=== PATIENT | female | born 1985 ===

== ENCOUNTER 2016-09-25 13:54 | Emergency (ER) | payer MEDICAID ==
[2016-09-25 13:54] VITALS: BMI 24.5
[2016-09-25 14:30] VITALS: RESP 18; O2SAT 98
[2016-09-25] MEDS ORDERED: Dexamethasone 4 mg/1 ml IM STA (14:53)
[2016-09-25] MEDS ORDERED: Dexamethasone 4 mg/1 ml ONE (15:00)
[2016-09-25 15:19] LABS: BASO % 0.3 % (0.0-2.0); EOS # 0.3 K/uL (0.0-0.7); EOS % 1.9 % (0.0-4.0); HEMATOCRIT 37.8 % (34.0-47.0); LYMPH # 1.7 K/uL (1.0-4.3); LYMPH % 12.2 % (20.0-40.0); MEAN CELL VOLUME 87.1 fL (81.0-99.0); MEAN CORPUSCULAR HEMOGLOBIN 28.6 pg (27.0-31.0); MEAN CORPUSCULAR HGB CONC 32.8 g/dL (33.0-37.0); MONO % 7.2 % (0.0-10.0); RED CELL DISTRIBUTION WIDTH 13.7 % (11.5-14.5); WHITE BLOOD COUNT 13.7 K/uL (4.8-10.8)
[2016-09-25 15:30] LABS: RBC URINE 3 /hpf (0-3); URINE BILIRUBIN NEGATIVE (NEGATIVE); URINE BLOOD NEGATIVE (NEGATIVE); URINE COLOR Yellow (YELLOW); URINE GLUCOSE (UA) NORMAL (Normal); URINE KETONE NEGATIVE (NEGATIVE); URINE PROTEIN 2+ mg/dL (NEGATIVE); WBC URINE 8 /hpf (0-5)
[2016-09-25 15:31] LABS: URINE LEUKOCYTE ESTERASE 1+ Leu/uL (Negative)
[2016-09-25 15:32] LABS: CHLORIDE 100 mmol/L (98-107)
[2016-09-25 15:33] LABS: POTASSIUM 3.7 mmol/L (3.6-5.2); SODIUM 138 mmol/L (132-148)
[2016-09-25 15:36] LABS: ALB/GLOB RATIO 1.1 (1.0-2.1); ALKALINE PHOSPHATASE 62 U/L (38-126); AST/SGOT 20 U/L (14-36); BILIRUBIN,TOTAL 0.2 mg/dL (0.2-1.3); BLOOD UREA NITROGEN 7 mg/dL (7-17); CARBON DIOXIDE 27 mmol/L (22-30); GFR AFRICAN-AMERICAN > 60
[2016-09-25 15:37] LABS: ALT/SGPT 23 U/L (9-52); CALCIUM 8.3 mg/dl (8.6-10.4); GLUCOSE,RANDOM 102 mg/dL (65-105)
[2016-09-25] MEDS ORDERED: Amoxicillin-Clav 875-125 mg Tab PO STA (15:50)
--- NOTE | 2016-09-25 15:54 | C.PDOC ---
Time Seen by Provider: 09/25/16 14:42 Chief Complaint (Nursing): Flu-like Symptoms History Per: Patient Onset/Duration Of Symptoms: Days (3) Current Symptoms Are (Timing): Still Present Associated Symptoms: Fever, Sore Throat, Cough, Nasal Congestion Severity: Moderate Additional History Per: Prior Records Past Medical History Reviewed: Historical Data, Nursing Documentation, Vital Signs Vital Signs: Last Vital Signs Temp 97.7 F 09/25/16 14:27 Pulse 90 09/25/16 14:27 Resp 18 09/25/16 14:27 BP 100/68 09/25/16 14:27 Pulse Ox 98 09/25/16 14:27 - Medical History PMH: No Chronic Diseases Surgical History: Cholecystectomy Family History: States: Unknown Family Hx - Social History Hx Tobacco Use: No Hx Alcohol Use: Yes Hx Substance Use: No - Immunization History Hx Tetanus Toxoid Vaccination: No Hx Influenza Vaccination: No Hx Pneumococcal Vaccination: No Review Of Systems Except As Marked, All Systems Reviewed And Found Negative. Constitutional: Positive for: Fever. Negative for: Weakness ENT: Positive for: Nose Congestion, Throat Pain, Throat Swelling Cardiovascular: Negative for: Chest Pain Respiratory: Positive for: Cough. Negative for: Shortness of Breath, Hemoptysis Gastrointestinal: Negative for: Abdominal Pain Genitourinary: Negative for: Dysuria Musculoskeletal: Negative for: Neck Pain, Back Pain Skin: Negative for: Rash Neurological: Negative for: Weakness, Numbness, Seizures, Altered Mental Status Physical Exam - Physical Exam Appears: Non-toxic, No Acute Distress Skin: Normal Color, Warm, Dry, No Rash Head: Atraumatic, Normacephalic Eye(s): bilateral: Normal Inspection, PERRL, EOMI Oral Mucosa: Moist, No Drooling, No Trismus Throat: Erythema, Exudate, No Drooling, No Mass Neck: Normal ROM, Supple Cardiovascular: Rhythm Regular Respiratory: Normal Breath Sounds, No Accessory Muscle Use Gastrointestinal/Abdominal: Soft, No Tenderness, No Organomegaly Back: No CVA Tenderness Extremity: Normal ROM Neurological/Psych: Oriented x3, Normal Speech, Normal Motor, Normal Sensation ED Course And Treatment - Laboratory Results Result Diagrams: 09/25/16 15:13 09/25/16 15:13 Urine POC: Negative O2 Sat by Pulse Oximetry: 98 Pulse Ox Interpretation: Normal Reassessment Condition: Improved Disposition Counseled Patient/Family Regarding: Studies Performed, Diagnosis, Need For Followup, Rx Given - Disposition Disposition: HOME/ ROUTINE Disposition Time: 15:54 Condition: IMPROVED Additional Instructions: Drink plenty of fluids. Follow up with your doctor this week. Return to the ER if you develop trouble breathing or swallowing, worsening of symptoms or if you have any other concerns. Prescriptions: Amoxicillin/Clavulanate [Augmentin 875 MG-125 MG] 1 tab PO BID #14 tab Instructions: Tonsillitis (ED), Cold Symptoms (ED) - Clinical Impression Clinical Impression: Influenza-like illness, Tonsillitis
[2016-09-25] MEDS ORDERED: Amoxicillin-Clav 875-125 mg Tab PO ONE (16:00)
[2016-09-25 16:14] VITALS: BP 104/73; PULSE 92; TEMP 98.6
== END 2016-09-25 16:20 | disposition home or self-care (01) ==
LOC: C.ER 13:54
DX: J03.90 Acute tonsillitis, unspecified (principal)
CPT/HCPCS: 80053; 81001; 84703; 85025; 86308; 96372; 99283; J1100

== ENCOUNTER 2017-04-06 13:29 | Emergency (ER) | payer MEDICAID ==
[2017-04-06 13:29] VITALS: BMI 24.5
--- NOTE | 2017-04-06 14:16 | C.PDOC ---
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 Also complaining of intermittent right arm pain diffusely from shoulder to wrist, which is dull and throbbing. Patient is right hand dominant. States the lesions become pustular and then cavernous. She has been treated before but does not remember the medications. No fever, chills, nausea, vomiting, or other complaints. PMD: Unknown provider Time Seen by Provider: 04/06/17 14:01 Chief Complaint (Nursing): Abnormal Skin Integrity History Per: Patient History/Exam Limitations: no limitations Onset/Duration Of Symptoms: Intermittent Episodes Current Symptoms Are (Timing): Still Present Past Medical History Reviewed: Historical Data, Nursing Documentation, Vital Signs Vital Signs: Last Vital Signs Temp 98.2 F 04/06/17 14:22 Pulse 80 04/06/17 14:22 Resp 17 04/06/17 14:22 BP 100/68 04/06/17 14:22 Pulse Ox 98 04/06/17 14:22 - Medical History PMH: Denies: Chronic Kidney Disease Surgical History: Cholecystectomy Family History: States: Unknown Family Hx - Social History Hx Tobacco Use: No Hx Alcohol Use: Yes Hx Substance Use: No - Immunization History Hx Tetanus Toxoid Vaccination: No Hx Influenza Vaccination: No Hx Pneumococcal Vaccination: No Review Of Systems Except As Marked, All Systems Reviewed And Found Negative. Constitutional: Negative for: Fever, Chills Gastrointestinal: Negative for: Nausea, Vomiting Musculoskeletal: Positive for: Arm Pain (Right) Skin: Positive for: Lesions Physical Exam - Physical Exam Appears: Well, Non-toxic, No Acute Distress Skin: Warm, Dry, Other (1 lesion to her right thigh and 1 to her chest region, which appear similar to small pimples) Head: Atraumatic, Normacephalic Eye(s): bilateral: Normal Inspection, PERRL, EOMI Nose: Normal Neck: Normal, Supple Chest: Symmetrical Cardiovascular: Rhythm Regular, No Murmur Respiratory: Normal Breath Sounds, No Accessory Muscle Use Gastrointestinal/Abdominal: Soft, No Tenderness Back: Normal Inspection, No Vertebral Tenderness Extremity: Normal ROM (with full ROM of right arm), No Other (Edema, redness) Neurological/Psych: Oriented x3, Normal Speech ED Course And Treatment O2 Sat by Pulse Oximetry: 99 (RA) Pulse Ox Interpretation: Normal Progress Note: Given Clindamycin in the ED. Stable for discharge home with rx for Clindamycin. Follow up with primary doctor. Disposition - Disposition Referrals: [facility] [Outside] Disposition: HOME/ ROUTINE Disposition Time: 14:14 Condition: STABLE Additional Instructions: Siga con johnson doctor o la clinica indicada. Okay johnson medicina brigitte es indicada. Regrese a la iban de emergencia si le da fiebre, o cualquier otro problema. Prescriptions: Clindamycin [Cleocin] 1 cap PO QID #30 cap Instructions: Complications of Infection (GEN) Forms: Gen Discharge Inst Paraguayan, [employer] (Paraguayan) - POA Present On Arrival: None - Clinical Impression Clinical Impression: Staph aureus infection - Scribe Statement The provider has reviewed the documentation as recorded by the Scribe Alisa Pacheco All medical record entries made by the Scribe were at my direction and personally dictated by me. I have reviewed the chart and agree that the record accurately reflects my personal performance of the history, physical exam, medical decision making, and the department course for this patient. I have also personally directed, reviewed, and agree with the discharge instructions and disposition.
[2017-04-06 14:23] VITALS: BP 100/68; PULSE 80; RESP 17; TEMP 98.2
[2017-04-06 18:43] VITALS: O2SAT 99
== END 2017-04-06 14:30 | disposition home or self-care (01) ==
LOC: C.ER 13:29
DX: A49.01 Methicillin susceptible Staphylococcus aureus infection, unspecified site (principal)

== ENCOUNTER 2017-05-11 12:57 | Emergency (ER) | payer MEDICAID ==
[2017-05-11 12:57] VITALS: BMI 24.5
[2017-05-11 13:18] VITALS: BP 114/76; PULSE 77; RESP 18; TEMP 97.8; O2SAT 100
--- NOTE | 2017-05-11 13:47 | C.PDOC ---
History Of Present Illness 32 yr old female presents to the ER fro evaluation of bilateral forearm pain, intermittently for the past 2 months. 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 Patient reports currently she is on Naproxen but with no improvement. Denies chest pain, SOB, neck pain, shoulder pain, weakness , numbness, sensory or vascular deficit. Time Seen by Provider: 05/11/17 13:41 Chief Complaint (Nursing): Upper Extremity Problem/Injury History Per: Patient History/Exam Limitations: no limitations Onset/Duration Of Symptoms: Intermittent Episodes (Past 2 months) Past Medical History Reviewed: Historical Data, Nursing Documentation, Vital Signs Vital Signs: Last Vital Signs Temp 97.8 F 05/11/17 13:13 Pulse 77 05/11/17 13:13 Resp 18 05/11/17 13:13 BP 114/76 05/11/17 13:13 Pulse Ox 100 05/11/17 18:30 Surgical History: Cholecystectomy Family History: States: No Known Family Hx - Social History Hx Tobacco Use: No Hx Alcohol Use: Yes Hx Substance Use: No - Immunization History Hx Tetanus Toxoid Vaccination: No Hx Influenza Vaccination: No Hx Pneumococcal Vaccination: No Review Of Systems Except As Marked, All Systems Reviewed And Found Negative. Cardiovascular: Negative for: Chest Pain Respiratory: Negative for: Shortness of Breath Musculoskeletal: Positive for: Other ((+) Bilateral forearm pain). Negative for : Neck Pain, Shoulder Pain Neurological: Negative for: Weakness, Numbness Physical Exam - Physical Exam Appears: Well, Non-toxic, No Acute Distress Skin: Normal Color, Warm, Dry, No Rash Head: Normacephalic Eye(s): bilateral: PERRL Extremity: Normal ROM (Bilateral upper extremities), Tenderness (Diffuse tenderness to bilatera forearms), Capillary Refill (<2 secs.), No Deformity, No Swelling Pulses: Left Radial: Normal, Right Radial: Normal Neurological/Psych: Oriented x3, Normal Speech, Normal Motor, Normal Sensation, Normal Reflexes ED Course And Treatment O2 Sat by Pulse Oximetry: 100 (RA) Pulse Ox Interpretation: Normal Progress Note: On re-eval, pt is afebrile, hemodynamicaly stable. Non-toxic. Ambulatory in ED with stable gait. B/L UEs; Exam c/w elbow tendonitis/forearm muscle strain. FAROM, no neurovascular deficits. No skin changes. Neuorlogicaly intact. Pt advised. re.f to f/u with PMD, Ortho in 2-3 days for re-eavl. return to Ed if any worsening or new changes. Disposition Counseled Patient/Family Regarding: Studies Performed, Diagnosis, Need For Followup, Rx Given - Disposition Referrals: José Bautista MD [Medical Doctor] - Disposition: HOME/ ROUTINE Disposition Time: 13:45 Condition: STABLE Additional Instructions: MARILEE WRAP TO ELBOWS LIGHT DUTY TO B/L ARM TAKE MEDICATION PRESCRIBED FOLLOW UP WITH PMD IN 2-3 DAYS FOR RE-EVALUATION. RETURN TO ED IF ANY WORSENING OR NEW CHANGES. 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 - Scribe Statement The provider has reviewed the documentation as recorded by the Scribe Lora Wilburn All medical record entries made by the Scribe were at my direction and personally dictated by me. I have reviewed the chart and agree that the record accurately reflects my personal performance of the history, physical exam, medical decision making, and the department course for this patient. I have also personally directed, reviewed, and agree with the discharge instructions and disposition.
== END 2017-05-11 13:54 | disposition home or self-care (01) ==
LOC: C.ER 12:57
DX: M79.632 Pain in left forearm (principal); M79.631 Pain in right forearm

== ENCOUNTER 2017-09-19 16:59 | Emergency (ER) | payer MEDICAID ==
[2017-09-19 16:59] VITALS: BMI 24.5
[2017-09-19 17:10] VITALS: BP 110/74; PULSE 75; RESP 18; TEMP 98.1; O2SAT 100
--- NOTE | 2017-09-19 17:37 | C.PDOC ---
History Of Present Illness 32 y/o female presents to the ER complaining of swelling to the face which has been present for the past 1 week. Patient states that she has swelling to the right lower eyelid, right side of nose, and right side of jawline. Patient reports that she went to the clinic and was prescribed Amoxicillin and Erythromycin Ophth without improvement. Patient notes that she has some discharge from the abscess from the eye. Patient denies having visual changes, fever, chills, dental pain, difficulty swallowing, and difficulty breathing. Time Seen by Provider: 09/19/17 17:11 Chief Complaint (Nursing): Abnormal Skin Integrity History Per: Patient History/Exam Limitations: no limitations Onset/Duration Of Symptoms: Days Current Symptoms Are (Timing): Still Present Severity: Moderate Past Medical History Reviewed: Historical Data, Nursing Documentation, Vital Signs Vital Signs: Last Vital Signs Temp 98.1 F 09/19/17 17:06 Pulse 75 09/19/17 17:06 Resp 18 09/19/17 17:06 BP 110/74 09/19/17 17:06 Pulse Ox 100 09/19/17 19:44 - Medical History PMH: Denies: Chronic Kidney Disease Surgical History: Cholecystectomy Family History: States: No Known Family Hx - Social History Hx Tobacco Use: No Hx Alcohol Use: Yes Hx Substance Use: No - Immunization History Hx Tetanus Toxoid Vaccination: No Hx Influenza Vaccination: No Hx Pneumococcal Vaccination: No Review Of Systems Except As Marked, All Systems Reviewed And Found Negative. Constitutional: Negative for: Fever, Chills Eyes: Negative for: Vision Change Skin: Positive for: Other (swelling to right side of face) Physical Exam - Physical Exam Appears: Non-toxic, No Acute Distress Skin: Warm Head: Atraumatic, Normacephalic, No Swelling, Other (<1 cm mobile mass to the right mandible at ramus) Eye(s): bilateral: PERRL, right: Other (0.5 cm area of swelling and eyrthema to the right lower eyelid, no surrounding swelling or erythema), left: Normal Inspection Nose: Other (1 pustule in right nasal passage) Oral Mucosa: Moist Tongue: Normal Appearing Lips: Normal Appearing Teeth: No Caries, No Tender To Palpation Gingiva: Normal Appearing, No Swelling, No Tender Throat: Normal, No Erythema, No Exudate Neck: Normal ROM, Supple Chest: Symmetrical Cardiovascular: Rhythm Regular Respiratory: Normal Breath Sounds, No Rales, No Rhonchi, No Wheezing Neurological/Psych: Oriented x3, Normal Speech ED Course And Treatment O2 Sat by Pulse Oximetry: 100 (RA) Pulse Ox Interpretation: Normal Progress Note: Patient has been given Clindamycin PO and Motrin PO. Patient has been instructed to take new abx and follow up with eye doctor in 1-2 days. Case discsussed with Dr Braxton, agreed upon plan and treatment. Disposition - Disposition Referrals: Jonh Jones [Staff Provider] - Disposition: HOME/ ROUTINE Disposition Time: 17:37 Condition: STABLE Additional Instructions: Apply warm compresses to the area. Wound check in 2 days with your PMD. Return to ER if symptoms persist or worsen. 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 - Scribe Statement The provider has reviewed the documentation as recorded by the José Miguelibe Fabrice Hussein Provider Attestation All medical record entries made by the Scribe were at my direction and personally dictated by me. I have reviewed the chart and agree that the record accurately reflects my personal performance of the history, physical exam, medical decision making, and the department course for this patient. I have also personally directed, reviewed, and agree with the discharge instructions and disposition.
== END 2017-09-19 18:25 | disposition home or self-care (01) ==
LOC: C.ER 16:59
DX: H00.012 Hordeolum externum right lower eyelid (principal); L02.01 Cutaneous abscess of face